=== PATIENT | female | born 1935 | race Caucasian/White ===

== ENCOUNTER 2021-08-11 14:59 | Inpatient (IN) | payer BC, MEDICARE ==
[~2021-08-11] VITALS: Ht 304.8 cm; Wt 64.5 kg
[2021-08-11] MEDS ORDERED: normal saline 1000ML IV soln IVB ONE (15:20)
[2021-08-11] MEDS ORDERED: hydrALAZINE 20mg/ml inj. IV ONE ×2 (15:45→16:00)
[2021-08-11 16:20] LABS: BASOPHILS # (AUTO) 0.1 X10'3 (0-0.2); BASOPHILS % (AUTO) 0.8 % (0-1); EOSINOPHILS # (AUTO) 0.1 X10'3 (0-0.9); EOSINOPHILS % (AUTO) 0.9 % (0-6); HEMATOCRIT 43.3 % (35.0-45.0); HEMOGLOBIN 14.5 g/dl (12.0-16.0); LYMPHOCYTES % (AUTO) 18.9 % (21-51); MEAN CORPUSCULAR HEMOGLOBIN 30.7 PG (27.0-31.0); MEAN CORPUSCULAR HGB CONC 33.5 g/dL (33.0-36.5); MEAN CORPUSCULAR VOLUME 91.6 FL (78-98); MEAN PLATELET VOLUME 9.1 FL (7.4-10.4); MONOCYTES # (AUTO) 0.9 X10'3 (0-0.9); MONOCYTES % (AUTO) 8.7 % (2-12); NEUTROPHILS # (AUTO) 7.5 X10'3 (1.8-7.7); NEUTROPHILS % (AUTO) 70.7 % (42-75); PLATELET COUNT 255 X10'3 (140-440); RED BLOOD COUNT 4.72 X10'6 (4.20-5.60); RED CELL DISTRIBUTION WIDTH 13.5 % (11.5-14.5); WHITE BLOOD COUNT 10.6 X10'3 (4.5-11.0)
[2021-08-11 17:37] LABS: ALANINE AMINOTRANSFERASE 13 U/L (12-78); ALBUMIN 3.4 G/DL (3.4-5.0); ALBUMIN/GLOBULIN RATIO 0.8 (1.1-1.5); ALKALINE PHOSPHATASE 69 IU/L (46-116); ANION GAP 11 (8-16); ASPARTATE AMINO TRANSFERASE 14 U/L (10-37); BILIRUBIN,TOTAL 0.5 MG/DL (0.1-1.0); BLOOD UREA NITROGEN 26 MG/DL (7-18); BUN/CREATININE RATIO 21.3 (6.6-38.0); CALCIUM 9.4 MG/DL (8.5-10.1); CHLORIDE 104 MMOL/L (99-107); CREATININE 1.22 MG/DL (0.40-0.90); GLUCOSE 154 MG/DL (70-104); MAGNESIUM 2.3 MG/DL (1.5-2.4); POTASSIUM 3.5 MMOL/L (3.5-5.1); SODIUM 145 MMOL/L (135-145); TOTAL CARBON DIOXIDE 30.4 MMOL/L (24-32); TOTAL PROTEIN 7.5 G/DL (6.4-8.2); eGFR 42 ML/MIN
[2021-08-11] MEDS ORDERED: aspirin 81mg tab.chew PO ONE (18:00)
--- NOTE | 2021-08-11 18:31 | NUR ---
SBP 221. Provider aware. No new orders at this time.
[2021-08-11] MEDS ORDERED: losartan 25mg tablet PO SCH (19:20)
[2021-08-11] MEDS ORDERED: losartan 25mg tablet PO ONE (19:20)
[2021-08-11] MEDS ORDERED: potassium Cl 40MEQ/1/2NS 520ml 520 ML IV PRN ×2 (19:40)
[2021-08-11] MEDS ORDERED: potassium Cl 20 mEq SR tablet PO PRN (19:40)
[2021-08-11] MEDS ORDERED: hydrALAZINE 20mg/ml inj. IV PRN (19:40)
[2021-08-11] MEDS ORDERED: mag hydrox/Alum hydrox/simeth 30ml oral suspension PO PRN (19:40)
[2021-08-11] MEDS ORDERED: acetaminophen 325mg tablet PO PRN (19:40)
[2021-08-11] MEDS ORDERED: magnesium hydroxide 30ml (MOM) UD suspension PO PRN (19:40)
[2021-08-11] MEDS ORDERED: morphine 2 MG/ML inj. syringe IV PRN (19:40)
[2021-08-11] MEDS ORDERED: magnesium 2GM in 50ml NS 50 ML IV PRN (19:40)
[2021-08-11] MEDS ORDERED: magnesium 4gm in 100ml NS 100 ML IV PRN (19:40)
[2021-08-11] MEDS ORDERED: magnesium Cl slow-release 64mg tablet PO PRN (19:40)
[2021-08-11] MEDS ORDERED: ondansetron/PF 4mg/2ml inj IV PRN (19:40)
[2021-08-11] MEDS ORDERED: DIGO125T2 PO (19:55)
[2021-08-11] MEDS ORDERED: CARV3.123 PO (19:55)
[2021-08-11] MEDS ORDERED: LOSA25TA41 PO (19:55)
[2021-08-11] MEDS ORDERED: APIX5TAB3 PO (19:55)
[2021-08-11] MEDS ORDERED: FURO20TA4 PO (19:55)
[2021-08-11] MEDS ORDERED: LATA2.5D14 EACHEYE (19:55)
[2021-08-11] MEDS: K and/or MAG REPLACEMENT MC SCH (20:00)
[2021-08-11] MEDS: docusate sod 100mg capsule PO SCH (20:00)
[2021-08-12 04:36] LABS: BASOPHILS # (AUTO) 0.1 X10'3 (0-0.2); BASOPHILS % (AUTO) 0.8 % (0-1); EOSINOPHILS # (AUTO) 0.1 X10'3 (0-0.9); EOSINOPHILS % (AUTO) 0.7 % (0-6); HEMATOCRIT 40.3 % (35.0-45.0); HEMOGLOBIN 13.3 g/dl (12.0-16.0); LYMPHOCYTES # (AUTO) 1.9 X10'3 (1.1-4.8); LYMPHOCYTES % (AUTO) 15.7 % (21-51); MEAN CORPUSCULAR HEMOGLOBIN 30.5 PG (27.0-31.0); MEAN CORPUSCULAR HGB CONC 32.9 g/dL (33.0-36.5); MEAN CORPUSCULAR VOLUME 92.7 FL (78-98); MEAN PLATELET VOLUME 9.7 FL (7.4-10.4); MONOCYTES % (AUTO) 8.2 % (2-12); NEUTROPHILS # (AUTO) 9.1 X10'3 (1.8-7.7); NEUTROPHILS % (AUTO) 74.6 % (42-75); PLATELET COUNT 243 X10'3 (140-440); RED BLOOD COUNT 4.35 X10'6 (4.20-5.60); RED CELL DISTRIBUTION WIDTH 13.4 % (11.5-14.5); WHITE BLOOD COUNT 12.2 X10'3 (4.5-11.0)
[2021-08-12 04:41] LABS: ALANINE AMINOTRANSFERASE 11 U/L (12-78); ALBUMIN/GLOBULIN RATIO 0.8 (1.1-1.5); ALKALINE PHOSPHATASE 63 IU/L (46-116); ANION GAP 8 (8-16); ASPARTATE AMINO TRANSFERASE 10 U/L (10-37); BILIRUBIN,TOTAL 0.6 MG/DL (0.1-1.0); BLOOD UREA NITROGEN 25 MG/DL (7-18); BUN/CREATININE RATIO 23.4 (6.6-38.0); CALCIUM 8.9 MG/DL (8.5-10.1); CHLORIDE 105 MMOL/L (99-107); CREATININE 1.07 MG/DL (0.40-0.90); GLUCOSE 167 MG/DL (70-104); POTASSIUM 3.1 MMOL/L (3.5-5.1); SODIUM 144 MMOL/L (135-145); TOTAL CARBON DIOXIDE 30.8 MMOL/L (24-32); TOTAL PROTEIN 6.6 G/DL (6.4-8.2); eGFR 49 ML/MIN
[2021-08-12 04:45] LABS: CHOL/HDL RATIO 3.2 (0.00-4.99); CHOLESTEROL 158 MG/DL (0-200); HDL CHOLESTEROL 49 MG/DL (35-60); LDL CHOLESTEROL 92 MG/DL (50-100); MAGNESIUM 2.2 MG/DL (1.5-2.4); TRIGLYCERIDES 82 MG/DL (20-135)
[2021-08-12] MEDS: docusate sod 100mg capsule PO SCH ×2 (08:35→20:00)
[2021-08-12] MEDS: K and/or MAG REPLACEMENT MC SCH ×2 (08:35→20:00)
[2021-08-12] MEDS: losartan 50mg tablet PO SCH (08:36)
[2021-08-12] MEDS: enoxaparin 40mg/0.4ml syringe SUBCUT SCH (08:36)
[2021-08-12] MEDS: potassium Cl 20 mEq SR tablet PO PRN ×2 (08:36→20:44)
[2021-08-12] MEDS ORDERED: furosemide 10 MG/1 ML 10ml inj IV ONE (09:25)
[2021-08-12] MEDS: hydrALAZINE 20mg/ml inj. IV PRN ×3 (12:38→22:34)
--- NOTE | 2021-08-12 12:38 | NUR ---
HYDRALAZINE 15MG IV GIVEN FOR BP 206/44
--- NOTE | 2021-08-12 16:55 | NUR ---
PER GRIS, KEEP K 4.0 AND ABOVE, MG 2.0 AND ABOVE
[2021-08-12 17:30] VITALS: BP 224/69
[2021-08-12 18:30] VITALS: BP 178/36
[2021-08-12 22:00] VITALS: BP 171/37
[2021-08-13 02:00] VITALS: BP 162/29
[2021-08-13] MEDS: potassium Cl 20 mEq SR tablet PO PRN (02:20)
--- NOTE | 2021-08-13 03:46 | NUR ---
reviewed and edited assessment.
--- NOTE | 2021-08-13 06:27 | NUR ---
Problems reprioritized. Patient report given, questions answered & plan of care reviewed with Calista.
[2021-08-13 06:34] LABS: BASOPHILS # (AUTO) 0.1 X10'3 (0-0.2); BASOPHILS % (AUTO) 0.8 % (0-1); EOSINOPHILS # (AUTO) 0.1 X10'3 (0-0.9); EOSINOPHILS % (AUTO) 0.8 % (0-6); HEMATOCRIT 38.4 % (35.0-45.0); LYMPHOCYTES % (AUTO) 16.2 % (21-51); MEAN CORPUSCULAR HEMOGLOBIN 31.1 PG (27.0-31.0); MEAN CORPUSCULAR HGB CONC 33.9 g/dL (33.0-36.5); MEAN CORPUSCULAR VOLUME 91.7 FL (78-98); MEAN PLATELET VOLUME 9.6 FL (7.4-10.4); MONOCYTES # (AUTO) 0.9 X10'3 (0-0.9); MONOCYTES % (AUTO) 7.6 % (2-12); NEUTROPHILS # (AUTO) 9.3 X10'3 (1.8-7.7); NEUTROPHILS % (AUTO) 74.6 % (42-75); PLATELET COUNT 238 X10'3 (140-440); RED BLOOD COUNT 4.19 X10'6 (4.20-5.60); RED CELL DISTRIBUTION WIDTH 13.5 % (11.5-14.5); WHITE BLOOD COUNT 12.5 X10'3 (4.5-11.0)
[2021-08-13 06:49] LABS: ALANINE AMINOTRANSFERASE 13 U/L (12-78); ALBUMIN 3.1 G/DL (3.4-5.0); ALBUMIN/GLOBULIN RATIO 0.8 (1.1-1.5); ALKALINE PHOSPHATASE 59 IU/L (46-116); ANION GAP 9 (8-16); ASPARTATE AMINO TRANSFERASE 13 U/L (10-37); BILIRUBIN,TOTAL 0.8 MG/DL (0.1-1.0); BLOOD UREA NITROGEN 36 MG/DL (7-18); BUN/CREATININE RATIO 26.5 (6.6-38.0); CALCIUM 9.3 MG/DL (8.5-10.1); CHLORIDE 106 MMOL/L (99-107); CREATININE 1.36 MG/DL (0.40-0.90); GLUCOSE 153 MG/DL (70-104); MAGNESIUM 2.3 MG/DL (1.5-2.4); SODIUM 144 MMOL/L (135-145); TOTAL CARBON DIOXIDE 29.3 MMOL/L (24-32); TOTAL PROTEIN 6.8 G/DL (6.4-8.2); eGFR 37 ML/MIN
--- NOTE | 2021-08-13 06:55 | NUR ---
Patient in room U 3027. I have received report from Rosina FRANCIS and had the opportunity to ask questions and assume patient care. Patient sleeping in bed in no acute distress.
[2021-08-13 07:00] VITALS: BP 192/33
[2021-08-13] MEDS ORDERED: furosemide 40mg/4ml inj IV ONE (07:40)
[2021-08-13] MEDS: K and/or MAG REPLACEMENT MC SCH ×2 (08:00→20:00)
[2021-08-13] MEDS: potassium chloride 10mEq ER tablet PO SCH (08:29)
[2021-08-13] MEDS: hydrALAZINE 25 MG tablet PO SCH ×3 (08:29→19:50)
[2021-08-13] MEDS: docusate sod 100mg capsule PO SCH ×2 (08:29→19:51)
[2021-08-13] MEDS: losartan 50mg tablet PO SCH (08:29)
[2021-08-13] MEDS: enoxaparin 40mg/0.4ml syringe SUBCUT SCH (08:30)
[2021-08-13] MEDS ORDERED: pneumococcal 23-VAL P-sac vacc 25 mcg/0.5ml vial IMVAC ONE (10:00)
[2021-08-13 11:00] VITALS: BP 159/39
--- NOTE | 2021-08-13 11:05 | NUR ---
Page to EKG [id number] David. Patient has new order for EKG. Melvina [id number]
--- NOTE | 2021-08-13 13:41 | NUR ---
Malnutrition/DM consult: Pt admitted w/ high blood pressure and dizziness per EMR. Upon assessment, pt states her appetite and has not experienced any decline in appetite. Pt states she has not had any recent weight loss. No visible signs of waisting observed at bedside, no edema present. At this time, pt does not meet minimum criteria for malnutrition. Hb A1C 7 well controlled and appropriate for age. Will continue to monitor. Addendum: 08/13/21 at [address] Amended: Links added.
[2021-08-13 15:00] VITALS: BP 142/34
[2021-08-13 18:00] VITALS: BP 189/43
--- NOTE | 2021-08-13 18:11 | NUR ---
Problems reprioritized. Patient report given, questions answered & plan of care reviewed with Mariam FRANCIS
--- NOTE | 2021-08-13 18:11 | NUR ---
Patient in room PCU 3029d. I have received report from TITO Hein and had the opportunity to ask questions and assume patient care.
[2021-08-13 22:00] VITALS: BP 156/48
[2021-08-14] VITALS (12 sets, daily range): BP systolic 122–160; BP diastolic 38–43
[2021-08-14] MEDS: hydrALAZINE 25 MG tablet PO SCH ×4 (03:00→20:05)
--- NOTE | 2021-08-14 06:05 | NUR ---
Problems reprioritized. Patient report given, questions answered & plan of care reviewed with TITO Hein.
[2021-08-14 06:31] LABS: BASOPHILS # (AUTO) 0.1 X10'3 (0-0.2); BASOPHILS % (AUTO) 1.2 % (0-1); EOSINOPHILS # (AUTO) 0.2 X10'3 (0-0.9); EOSINOPHILS % (AUTO) 2.5 % (0-6); HEMOGLOBIN 12.6 g/dl (12.0-16.0); LYMPHOCYTES # (AUTO) 1.7 X10'3 (1.1-4.8); MEAN CORPUSCULAR HEMOGLOBIN 30.9 PG (27.0-31.0); MEAN CORPUSCULAR HGB CONC 33.2 g/dL (33.0-36.5); MEAN CORPUSCULAR VOLUME 93.2 FL (78-98); MEAN PLATELET VOLUME 9.2 FL (7.4-10.4); MONOCYTES # (AUTO) 0.8 X10'3 (0-0.9); MONOCYTES % (AUTO) 7.7 % (2-12); NEUTROPHILS % (AUTO) 71.6 % (42-75); PLATELET COUNT 225 X10'3 (140-440); RED BLOOD COUNT 4.08 X10'6 (4.20-5.60); RED CELL DISTRIBUTION WIDTH 13.8 % (11.5-14.5); WHITE BLOOD COUNT 9.8 X10'3 (4.5-11.0)
[2021-08-14 07:08] LABS: ALANINE AMINOTRANSFERASE 9 U/L (12-78); ALBUMIN/GLOBULIN RATIO 0.8 (1.1-1.5); ALKALINE PHOSPHATASE 56 IU/L (46-116); ANION GAP 9 (8-16); ASPARTATE AMINO TRANSFERASE 14 U/L (10-37); BILIRUBIN,TOTAL 0.7 MG/DL (0.1-1.0); BLOOD UREA NITROGEN 42 MG/DL (7-18); CALCIUM 9.8 MG/DL (8.5-10.1); CHLORIDE 103 MMOL/L (99-107); GLUCOSE 141 MG/DL (70-104); MAGNESIUM 2.3 MG/DL (1.5-2.4); POTASSIUM 4.5 MMOL/L (3.5-5.1); SODIUM 140 MMOL/L (135-145); TOTAL CARBON DIOXIDE 28.2 MMOL/L (24-32); TOTAL PROTEIN 6.7 G/DL (6.4-8.2); eGFR 42 ML/MIN
[2021-08-14] MEDS: K and/or MAG REPLACEMENT MC SCH ×2 (08:00→20:00)
[2021-08-14] MEDS: docusate sod 100mg capsule PO SCH ×2 (09:03→20:04)
[2021-08-14] MEDS: enoxaparin 40mg/0.4ml syringe SUBCUT SCH (09:04)
[2021-08-14] MEDS: potassium chloride 10mEq ER tablet PO SCH (09:04)
[2021-08-14] MEDS: losartan 50mg tablet PO SCH (09:04)
[2021-08-14] MEDS ORDERED: LIDOcaine 1% W/epiNEPHrine 1:100,000 20ml vial ONE ×2 (09:30→10:43)
[2021-08-14] MEDS ORDERED: midazolam 1 mg/ML 2ml injection ONE (09:30)
[2021-08-14] MEDS ORDERED: ceFAZolin 2gm in dextrose, iso 50 ML IV ONE (09:30)
[2021-08-14] MEDS ORDERED: fentaNYL/PF 50MCG/1 ML 2ML syringe ONE (09:30)
[2021-08-14] MEDS ORDERED: ceFAZolin 1000mg inj ONE (09:30)
[2021-08-14] MEDS ORDERED: carvedilol 6.25mg tablet PO ONE (12:05)
[2021-08-14] MEDS ORDERED: HYDROcodone/acetaminophen 5mg/325mg tablet PO PRN (12:05)
[2021-08-14] MEDS ORDERED: vancomycin/NS 1 GM ADD-VANTAGE 250 ML X 1 DOSE IV ONE (14:00)
[2021-08-14] MEDS: HYDROcodone/acetaminophen 5mg/325mg tablet PO PRN ×2 (14:10→20:04)
--- NOTE | 2021-08-14 18:09 | NUR ---
Problems reprioritized. Patient report given, questions answered & plan of care reviewed with Keisha FRANCIS and Fiordaliza RN. Patient eating in bed. I no acute distress. Incision site without hematoma or bruising. Sensation Intact .
--- NOTE | 2021-08-14 18:10 | NUR ---
Patient in room PCU 3013. I have received report from TITO Martinez and had the opportunity to ask questions and assume patient care.
--- NOTE | 2021-08-14 18:55 | NUR ---
Patient in room PCU 3013. I have received report from Keisha FRANCIS and Fiordaliza FRANCIS and had the opportunity to ask questions and assume patient care.
[2021-08-14] MEDS: carvedilol 6.25mg tablet PO SCH (20:04)
[2021-08-14] MEDS: HYDROcodone/acetaminophen 10/325mg tab PO PRN (23:51)
[2021-08-15] VITALS: BP 128/43
[2021-08-15] MEDS: hydrALAZINE 25 MG tablet PO SCH ×3 (04:04→14:01)
--- NOTE | 2021-08-15 06:23 | NUR ---
Problems reprioritized. Patient report given, questions answered & plan of care reviewed with Melvina FRANCIS.
[2021-08-15 06:55] LABS: BASOPHILS # (AUTO) 0.1 X10'3 (0-0.2); HEMOGLOBIN 11.9 g/dl (12.0-16.0); LYMPHOCYTES # (AUTO) 1.4 X10'3 (1.1-4.8); RED CELL DISTRIBUTION WIDTH 13.6 % (11.5-14.5)
[2021-08-15 06:57] LABS: BASOPHILS % (AUTO) 0.8 % (0-1); EOSINOPHILS # (AUTO) 0.3 X10'3 (0-0.9); EOSINOPHILS % (AUTO) 3.4 % (0-6); HEMATOCRIT 36.4 % (35.0-45.0); LYMPHOCYTES % (AUTO) 16.4 % (21-51); MEAN CORPUSCULAR HGB CONC 32.6 g/dL (33.0-36.5); MEAN CORPUSCULAR VOLUME 95.1 FL (78-98); MEAN PLATELET VOLUME 9.3 FL (7.4-10.4); MONOCYTES # (AUTO) 0.8 X10'3 (0-0.9); MONOCYTES % (AUTO) 8.9 % (2-12); NEUTROPHILS % (AUTO) 70.5 % (42-75); PLATELET COUNT 201 X10'3 (140-440); RED BLOOD COUNT 3.83 X10'6 (4.20-5.60); WHITE BLOOD COUNT 8.5 X10'3 (4.5-11.0)
[2021-08-15 07:00] VITALS: BP 145/46
[2021-08-15 07:23] LABS: ALANINE AMINOTRANSFERASE 13 U/L (12-78); ALBUMIN 2.8 G/DL (3.4-5.0); ALBUMIN/GLOBULIN RATIO 0.8 (1.1-1.5); ALKALINE PHOSPHATASE 53 IU/L (46-116); ANION GAP 7 (8-16); ASPARTATE AMINO TRANSFERASE 16 U/L (10-37); BILIRUBIN,TOTAL 0.5 MG/DL (0.1-1.0); BLOOD UREA NITROGEN 47 MG/DL (7-18); BUN/CREATININE RATIO 33.3 (6.6-38.0); CALCIUM 8.7 MG/DL (8.5-10.1); CHLORIDE 104 MMOL/L (99-107); CREATININE 1.41 MG/DL (0.40-0.90); GLUCOSE 135 MG/DL (70-104); MAGNESIUM 2.2 MG/DL (1.5-2.4); POTASSIUM 5.1 MMOL/L (3.5-5.1); SODIUM 138 MMOL/L (135-145); TOTAL CARBON DIOXIDE 26.6 MMOL/L (24-32); TOTAL PROTEIN 6.2 G/DL (6.4-8.2); eGFR 35 ML/MIN
[2021-08-15] MEDS: carvedilol 6.25mg tablet PO SCH (08:58)
[2021-08-15] MEDS: docusate sod 100mg capsule PO SCH (08:58)
[2021-08-15] MEDS: losartan 50mg tablet PO SCH (08:59)
[2021-08-15] MEDS: potassium chloride 10mEq ER tablet PO SCH (08:59)
[2021-08-15] MEDS: HYDROcodone/acetaminophen 10/325mg tab PO PRN (09:01)
[2021-08-15] MEDS ORDERED: LOSA50TA64 PO (09:10)
[2021-08-15] MEDS ORDERED: CARV6.253 PO (09:10)
[2021-08-15] MEDS ORDERED: APIX2.5T PO (09:10)
[2021-08-15 11:00] VITALS: BP 136/31
[2021-08-15] MEDS ORDERED: CEPH250T PO (13:16)
[2021-08-15 14:01] VITALS: BP_SYST 186
--- NOTE | 2021-08-15 14:36 | NUR ---
Meds given late today due to being out of ratio and high acuity patients and most of my patients had bad IVs this am .
--- NOTE | 2021-08-15 14:58 | NUR ---
MEds called to patient pharmacy [facility] [id number] Eliquis, Coreg, and losartan potassium. Catapres patch removed from patient. Patient is DC to home. DC instructions and warning s/s were reviewed with patient and son and both verbalized understanding. PIV was removed with cannula intact. New pacer precautions were reviewed with patient and she verbalized understanding. PAtient educated not to take dressing off until appt with Dr. Jacob. Belongings went with patient . She is being picked up by her son. SHe is alert, oriented, and appropriated at time of DC.
[2021-08-16] MEDS ORDERED: apixaban 2.5mg tablet PO SCH (08:00)
== END 2021-08-15 15:15 | disposition home health service (06) | DRG 242 ==
LOC: ER 14:59 → UNDOADMIN 19:38 → ED HOLD 19:38 → UNDOADMIN 19:49 → ED HOLD 19:49 → PCU 3S 08-12 17:16
PROVIDERS: ADMIT Internal Medicine; ATTEND Internal Medicine
PROC: 3E0234Z Introduction of Serum, Toxoid and Vaccine into Muscle, Percutaneous Approach (ICD-10-PCS; 2021-08-13)
PROC: 0JH606Z Insertion of Pacemaker, Dual Chamber into Chest Subcutaneous Tissue and Fascia, Open Approach (ICD-10-PCS; principal; 2021-08-14)
PROC: 02HK3JZ Insertion of Pacemaker Lead into Right Ventricle, Percutaneous Approach (ICD-10-PCS; 2021-08-14)
PROC: 02H63JZ Insertion of Pacemaker Lead into Right Atrium, Percutaneous Approach (ICD-10-PCS; 2021-08-14)
DX: I49.5 Sick sinus syndrome (principal); I21.A1 Myocardial infarction type 2; I50.32 Chronic diastolic (congestive) heart failure; N17.9 Acute kidney failure, unspecified; I13.0 Hypertensive heart and chronic kidney disease with heart failure and stage 1 through stage 4 chronic kidney disease, or unspecified chronic kidney disease; I44.1 Atrioventricular block, second degree; I48.0 Paroxysmal atrial fibrillation; R55 Syncope and collapse; I27.20 Pulmonary hypertension, unspecified; I08.3 Combined rheumatic disorders of mitral, aortic and tricuspid valves; N18.9 Chronic kidney disease, unspecified; D72.829 Elevated white blood cell count, unspecified; E66.01 Morbid (severe) obesity due to excess calories; E87.6 Hypokalemia; I45.10 Unspecified right bundle-branch block; I49.8 Other specified cardiac arrhythmias; Z87.891 Personal history of nicotine dependence; Z23 Encounter for immunization; Z56.0 Unemployment, unspecified; Z90.49 Acquired absence of other specified parts of digestive tract; Z90.721 Acquired absence of ovaries, unilateral
CPT/HCPCS: 33208; 36415; 71045; 71046; 80053; 80061; 80162; 83036; 83735; 83880; 84132; 84484; 85025; 87081; 90732; 93005; 93306; 96361; 96374; 99152; 99153; 99285; A4565; A4620; A6449; C1785; C1894; C1898; G0378; J0360; J0690; J1650; J1940; J2250; J3010; J3370; J7030

== ENCOUNTER 2021-08-25 11:58 | Emergency (ER) | payer BC, MEDICAID ==
[~2021-08-25] VITALS: Ht 152.4 cm; Wt 60.0 kg
[~2021-08-25 11:58] MED LIST: APIX2.5T PO; CARV6.253 PO; FURO20TA4 PO; LATA2.5D14 EACHEYE; LOSA50TA64 PO
[2021-08-25 18:17] LABS: BASOPHILS # (AUTO) 0.1 X10'3 (0-0.2); BASOPHILS % (AUTO) 1.1 % (0-1); EOSINOPHILS # (AUTO) 0.2 X10'3 (0-0.9); EOSINOPHILS % (AUTO) 1.8 % (0-6); HEMATOCRIT 36.6 % (35.0-45.0); HEMOGLOBIN 12.5 g/dl (12.0-16.0); LYMPHOCYTES # (AUTO) 1.6 X10'3 (1.1-4.8); LYMPHOCYTES % (AUTO) 18.4 % (21-51); MEAN CORPUSCULAR HEMOGLOBIN 32.3 PG (27.0-31.0); MEAN CORPUSCULAR HGB CONC 34.1 g/dL (33.0-36.5); MEAN CORPUSCULAR VOLUME 94.7 FL (78-98); MEAN PLATELET VOLUME 8.4 FL (7.4-10.4); MONOCYTES # (AUTO) 0.8 X10'3 (0-0.9); MONOCYTES % (AUTO) 8.8 % (2-12); NEUTROPHILS % (AUTO) 69.9 % (42-75); PLATELET COUNT 276 X10'3 (140-440); RED BLOOD COUNT 3.87 X10'6 (4.20-5.60); RED CELL DISTRIBUTION WIDTH 13.4 % (11.5-14.5); WHITE BLOOD COUNT 8.5 X10'3 (4.5-11.0)
[2021-08-25 18:19] VITALS: BP 198/62
[2021-08-25 18:47] LABS: ALANINE AMINOTRANSFERASE 17 U/L (12-78); ALBUMIN 3.5 G/DL (3.4-5.0); ALBUMIN/GLOBULIN RATIO 0.9 (1.1-1.5); ALKALINE PHOSPHATASE 74 IU/L (46-116); ANION GAP 5 (8-16); ASPARTATE AMINO TRANSFERASE 16 U/L (10-37); BLOOD UREA NITROGEN 25 MG/DL (7-18); BUN/CREATININE RATIO 25.8 (6.6-38.0); CHLORIDE 105 MMOL/L (99-107); CREATININE 0.97 MG/DL (0.40-0.90); GLUCOSE 116 MG/DL (70-104); POTASSIUM 3.9 MMOL/L (3.5-5.1); SODIUM 141 MMOL/L (135-145); TOTAL CARBON DIOXIDE 31.1 MMOL/L (24-32); TOTAL PROTEIN 7.5 G/DL (6.4-8.2); eGFR 54 ML/MIN
== END 2021-08-25 19:08 | disposition home or self-care (01) ==
LOC: ER 11:59
DX: S20.212A Contusion of left front wall of thorax, initial encounter (principal); I48.91 Unspecified atrial fibrillation; Z79.899 Other long term (current) drug therapy; Z90.49 Acquired absence of other specified parts of digestive tract; Z56.0 Unemployment, unspecified; Z95.0 Presence of cardiac pacemaker; X58.XXXA Exposure to other specified factors, initial encounter; Y93.89 Activity, other specified; Y92.89 Other specified places as the place of occurrence of the external cause; Y99.8 Other external cause status
CPT/HCPCS: 36415; 76882; 80053; 85025; 99284